=== PATIENT | male | born 1970 | race Caucasian/White ===

== ENCOUNTER 2016-12-17 07:01 | Emergency (ER) | payer OTHER ==
[~2016-12-17] VITALS: Ht 172.7 cm; Wt 100.0 kg
[2016-12-17 07:04] VITALS: BP 164/100; PULSE 45; RESP 16; O2SAT 98
--- NOTE | 2016-12-17 07:07 | ED.REPORT ---
HPI-Abd Pain M 40 and Over Date of Service Dec 17, 2016 ED Provider: Hammad Augustin Patient is a 46 year old male with a hx of kidney stones and Crohn's disease who presents to the ED complaining of R sided abdominal pain onset 0330 this morning. He reports that he woke up to use the restroom and even after urinating , he felt the urge to urinate. Pt then developed R sided abdominal pain that radiates down to his testicles. Associated symptoms include nausea and vomiting. He denies fever, diarrhea, or any other symptoms. Pt reports this feels like his previous kidney stones and does not feel like a crohn's flare-up. Nursing Notes Stated Complaint: ABDOMINAL PAIN Chief Complaint: Male Abdominal Pain Nursing Notes Reviewed: Yes Allergies: Coded Allergies: No Known Allergies (Unverified , 12/17/16) Scheduled PRN Hydrocodone-Acetaminophen 5-325 mg (Hydrocodone-Acetaminophen 5-325 mg) 1 Each Tablet 1-2 TABLET PO Q4H PRN PRN For Pain Ondansetron ODT (Zofran ODT) 4 Mg Tablet 4 MG PO Q4H PRN PRN For Nausea General Time Seen by MD: 07:06 Chief Complaint Abdominal pain Hx Obtained From: Patient Arrived By: Walk-in Sudden in Onset?: Yes Onset Occurred: 1 - 4 hours ago Symptom Duration: Since onset Location: : RLQ: RUQ Quality: Painful Severity: Current: Moderate Severity: Maximum: Severe Associated with: Reports: Nausea, Vomiting Pertinent Negative: Pt denies other symptoms Similar Sx Previous: Yes Risk Factors )( AAA Risk Stratification HypertensionNo Smoking Risk factors reviewed Past Medical History Past Medical History Kidney stones Crohn's disease on Janet HTN Past Surgical History Reports: Cholecystectomy Smoking History Never Smoker Social History Alcohol Use: "Social" Other Social History: Ambulatory Status Independent Review of Systems Constitutional: Denies: Fever GI: Reports: Abdominal pain, Nausea, Vomiting, Denies: Diarrhea Male: Reports Testicular pain, Reports Urinary urgency Complete sys rev & neg: except as marked. Physical Exam Initial Vital Signs Vital Signs (First) Date Time Temp Pulse Resp B/P Pulse Ox O2 Delivery O2 Flow Rate FiO2 12/17/16 07:04 36.5 45 16 164/100 98 Room Air Initial VS: Reviewed, Vital signs abnormal Head / Eyes: Atraumatic, Normocephalic Neck: Full range of motion Neurologic: Alert, Oriented, Nonfocal General/Constitutional: Awake, Alert Actively vomiting Uncomfortable Respiratory / Chest: Atraumatic, Breath sounds NL, Breath sounds = bilat, No respiratory distress Cardiovascular: Heart rate NL, Regular rhythm, Heart sounds NL Abdomen: Atraumatic, Soft, Non-tender Back: No CVA tenderness Skin: Warm Color / Condition: Positive: Diaphoresis present Interpretation & Diagnostics Lab Results Interpretation Result Diagram: 12/17/16 0725 Test 12/17/16 07:25 12/17/16 07:27 12/17/16 08:00 White Blood Count 10.9th/mm3 (3.8-10.1) Red Blood Count 4.73mil/mm3 (4.40-5.80) Hemoglobin 14.1g/dL (13.8-17.2) Hematocrit 40.3% (41.0-50.0) Mean Corpuscular Volume 85.2fL (81-100) Mean Corpuscular Hemoglobin 29.8pg (27.0-35.0) Mean Corpuscular Hemoglobin Concent 35.0% (32.0-37.0) Red Cell Distribution Width 12.1% (12.3-15.4) Platelet Count 269bil/L (150-400) Neutrophils (%) (Auto) 79.3% (40-74) Lymphocytes (%) (Auto) 12.7% (14-46) Monocytes (%) (Auto) 6.5% (4-12) Eosinophils (%) (Auto) 0.3% (0-5) Basophils (%) (Auto) 1.0% (0-3) Urine Color Straw (YELLOW) Urine Appearance Hazy (CLEAR,HAZY) Urine pH 5.5 (5.0-8.0) Urine Specific [place] 1.030 (1.003-1.035) Urine Protein Tracemg/dL (NEG,TRACE) Urine Glucose (UA) Negativemg/dL (NEGATIVE) Urine Ketones Negativemg/dL (NEGATIVE) Urine Occult Blood Large (NEGATIVE) Urine Nitrite Negative (NEGATIVE) Urine Bilirubin Negative (NEGATIVE) Urine Urobilinogen Normalmg/dL (NORMAL) Urine Leukocyte Esterase Negative (NEGATIVE) Urine RBC >50/hpf (0-2) Urine WBC 0-5/hpf (0-5) Urine Epithelial Cells Occasional/hpf (NONE-MOD) Urine Crystals Oxalic acid crystals (NONE Urine Bacteria None/hpf (NONE-FEW) Urine Hyaline Casts None/lpf (NONE) Urine Granular Casts None seen (NONE SEEN) Urine Waxy Casts None seen (NONE SEEN) Urine Red Blood Cell Casts None seen (NONE SEEN) Urine White Blood Cell Casts None seen (NONE SEEN) Urine Mucus Present (None Seen) Urine Trichomonas None seen (NONE SEEN) Urine Yeast None (NONE SEEN) Urinalysis Comment None Urine Culture Reflexed Not indicated Lab Results Interpretation: CT KUB: IMPRESSION: Small distal right ureteral stone measuring 3 x 4 mm virtually within the orifice of the far distal right ureter, producing moderate right hydronephrosis and hydroureter to that level. Prior cholecystectomy. Dictated by: Trevor Franco M.D. on 12/17/2016 at 8:10 Approved by: Trevor Franco M.D. on 12/17/2016 at 8:12 Re-Eval/Medical Decision Time of Eval: 08:27 )( Re-Eval Abdomen: Soft Re-Evaluation/Progress Note: Rechecked pt. Pt reports his pain is now a 3/10 and is not longer naseaous. Discussed CT results and what to expect as kidney stone progresses. Discussed UA results and plan for discharge. Patient understands and agrees with plan. All questions addressed at this time. Counseled Regarding: Diagnosis, Lab results, Need for follow-up, When/why to return to ED Discharge & Departure Primary Impression: Kidney stone Disposition: Home Vital Signs - All Vital Signs Date Time Temp Pulse Resp B/P Pulse Ox O2 Delivery O2 Flow Rate FiO2 12/17/16 07:04 36.5 45 16 164/100 98 Room Air )( All Prior VS Reviewed: Yes Condition: Stable Patient Instructions: Renal Colic (ED) Additional Instructions: Thank you for entrusting us with your care. Your CT shows that you have a kidney stone in your right ureter. Until the stone drops to your bladder, it may continue to be painful. I recommend copious hydration. You may take Ibuprofen, up to 800mg every 8 hours. For more intense pain, you may take hydrocodone/APAP 1-2 every 4 hours. If your symptoms persist, please follow up with your primary doctor. Ondansetron as needed for nausea. Return to the emergency department if you experience high fever, shaking chills , or any other new or concerning symptoms. Referrals: Norm Russ MD Attestation Portions of this note were transcribed by Guzman Prabhakar. I, Dr. Augustin personally performed the history, physical exam and medical decision-making; I reviewed and confirmed the accuracy of the information in the transcribed note. Signed by: Thuan Zamora, 12/17/16 copies to: Norm Russ MD, Kirk H MD Dec 17, 2016 07:07 GUZMAN PRABHAKAR Dec 17, 2016 07:14
[2016-12-17] MEDS ORDERED: 0.9% Sodium Chloride 1,000 ML IV ONE (07:11)
[2016-12-17] MEDS ORDERED: HYDROmorphone 0.5 mg/0.5 mL iSecure Syringe IVPUSH PRN (07:15)
[2016-12-17] MEDS ORDERED: Ondansetron 2 mg/mL 2 mL Inj IVPUSH PRN (07:15)
[2016-12-17 07:42] LABS: EOSINOPHILS % (AUTO) 0.3 % (0-5); MONOCYTES % (AUTO) 6.5 % (4-12); Mean Corpuscular Hemoglobin 29.8 pg (27.0-35.0); Mean Corpuscular Volume 85.2 fL (81-100); NEUTROPHILS % (AUTO) 79.3 % (40-74); Platelet Count 269 bil/L (150-400)
--- NOTE | 2016-12-17 08:14 | DRSVH ---
PROCEDURE: CT KUB ([id number]) INDICATIONS: right flank pain TECHNIQUE: Noncontrast 5 mm thick sections acquired from the diaphragms to the symphysis. 5 mm thick coronal an d sagittal reformats were then performed. For radiation dose reduction, the following was used: aut omated exposure control, adjustment of mA and/or kV according to patient size. COMPARISON: None. FINDINGS: Image quality: Excellent. Lung bases: Lung bases are clear. Heart size is normal. Urinary system: Both kidneys are normal in size. No kidney stones but there is a far distal right u reteral stone at the ureteral orifice within the bladder lumen, measuring 3 x 4 mm. No hydronephrosi s or perinephric fat stranding on the left but there is moderate hydronephrosis on the right. Both u reters appear non-dilated throughout their expected courses. Bladder wall thickness is normal; no ca lcified bladder stones. Other solid organs: Liver and spleen are normal in size. Gallbladder appears previously resected. Pancreas is normal in contours. No adrenal nodules. Peritoneum and bowel: Unenhanced bowel loops demonstrate normal wall thickness and caliber. No free fluid or air. Nodes and vessels: No retroperitoneal or mesenteric adenopathy by size criteria. Aorta and inferior vena cava are normal in caliber. Abdominal wall: No ventral hernias. Pelvis: No free pelvic fluid. No inguinal hernias or adenopathy. Bones: No suspicious bony lesions. No vertebral body compression fractures. IMPRESSION: Small distal right ureteral stone measuring 3 x 4 mm virtually within the orifice of the far distal right ureter, producing moderate right hydronephrosis and hydroureter to that level. Prio r cholecystectomy. Dictated by: Trevor Franco M.D. on 12/17/2016 at 8:10 Approved by: Trevor Franco M.D. on 12/17/2016 at 8:12
[2016-12-17 08:16] LABS: APPEARANCE,URINE HAZY (CLEAR,HAZY); COLOR,URINE STRAW (YELLOW); OCCULT BLOOD,URINE LARGE (NEGATIVE); PH,URINE 5.5 (5.0-8.0); UROBILINOGEN,URINE NORMAL (NORMAL)
[2016-12-17] MEDS ORDERED: HYDR-4003 PO (08:43)
[2016-12-17] MEDS ORDERED: ONDA4TAB9 PO (08:43)
[2016-12-17 09:05] VITALS: BP 114/64; PULSE 56; RESP 16; O2SAT 98
== END 2016-12-17 09:07 | disposition home or self-care (01) ==
LOC: SED 07:01
DX: N20.0 Calculus of kidney (principal); K50.90 Crohn's disease, unspecified, without complications; I10 Essential (primary) hypertension; Z87.442 Personal history of urinary calculi
CPT/HCPCS: 36415; 74176; 80053; 81000; 85025; 96361; 96374; 96375; 99285; J1170; J1885; J2405; J7030